=== PATIENT | female | born 1985 | race Caucasian/White ===

== ENCOUNTER 2024-04-23 11:01 | Day surgery (SDC) | payer OTHER, MEDICAID, SELFPAY ==
--- NOTE | 2024-04-16 14:22 | HP.PCM_ITS ---
History and Physical Date of Admission: 04/23/24 HPI: The patient is a 38 year old female presenting for pre-operative visit. She is scheduled for right ovarian cystectomy, possible oophorectomy and sterilization , for sterilization request and right ovarian cyst and RLQ pain on 04/23/24. Procedure discussed along with risks, benefits and complications. Other alternatives discussed for management. Consent form signed? Yes. PAST MEDICAL HISTORY PAST MEDICAL HISTORY Diagnosis Date ? Adnexal mass 01/08/2024 ? Anxiety and depression ? PTSD (post-traumatic stress disorder) PAST SURGICAL HISTORY PAST SURGICAL HISTORY Procedure Laterality Date ? INSERTION OF IUD 11/21/2023 Mirena ? PAST SURGICAL HISTORY OF Surgery when baby but doesnt know why just has a scar on left side of abdomen CURRENT MEDICATIONS Current Outpatient Medications Medication Sig Dispense Refill ? VYVANSE 30 mg capsule Take 1 capsule by mouth every afternoon. ? levonorgestrel (MIRENA) 21 mcg/24 hr (8 yrs) 52 mg IUD 1 Each by INTRAUTERINE route as directed. 1 Each 0 ? levonorgestrel (MIRENA) 21 mcg/24 hr (8 yrs) 52 mg IUD 1 Each by INTRAUTERINE route one time only for 1 dose. 1 Each 0 ? cholecalciferol, vitamin D3, (VITAMIN D3 ORAL) Take 1 capsule by mouth once daily. No current facility-administered medications for this visit. ALLERGIES: [place] and Venom-Honey Bee PERSONAL HISTORY: SOCIAL HISTORY Social History Tobacco Use ? Smoking status: Former Types: Cigarettes ? Smokeless tobacco: Never Vaping Use ? Vaping status: Never Used Substance Use Topics ? Alcohol use: Not Currently ? Drug use: Yes Frequency: 1.0 times per week Types: Marijuana Comment: Edible FAMILY HISTORY: FAMILY HISTORY FAMILY HISTORY Problem Relation Age of Onset ? Heart Mother ? No Known Problems Father ? other (overdose) Brother ? Breast Cancer Maternal Grandmother 50 ? No Known Problems Paternal Grandmother ? No Known Problems Paternal Grandfather ? Breast Cancer Maternal Aunt 50 ? Breast Cancer Maternal Aunt ? Heart Attack Maternal Aunt REVIEW OF SYMPTOMS: GENERAL: denies fevers or chills ENDOCRINOLOGY: has not been on steroids Cardiology : denies palpitations or chest pain Respiratory: denies SOB or cough Hematology: denies history of prolonged bleeding or easy bruising or VTE Allergy: Denies history of personal or family history of allergy to anesthesia PHYSICAL EXAMINATION: VITALS: Last menstrual period 01/15/2024. GENERAL: The patient is well nourished, well hydrated in no acute distress. , The patient is oriented to time, place, and person. NECK: Supple. No lynphadenopathy, normal thyroid, no thyromegaly. LUNGS: Clear to auscultation bilaterally. no wheezes, rhonchi or rales HEART: Regular rate and rhythm, Normal heart sounds, and No murmurs or gallops IMPRESSION: right ovarian cyst, sterilization request PLAN: The risks/benefits/alternatives and personal involved for the planned right ovarian cystectomy, possible oophorectomy and bilateral salpingectomy were reviewed with the patient. Her questions were answered to her satisfaction and she desires to proceed. Consent was signed. I reviewed with her postop instructions and expectations. I have reviewed and updated past medical and surgical history, medications and allergies Assessment & Plan Assessment/Plan (1) Sterilization: (2) Right ovarian cyst: (3) RLQ abdominal pain:
[2024-04-23] VITALS (10 sets, daily range): BP systolic 99–137; BP diastolic 49–79; PULSE 54–88; RESP 16–18; TEMP 36.2–36.8; O2SAT 96–99; BMI 42.3
[2024-04-23 11:35] LABS: Internal QC Validated? YES +Cl - CLEAR BKGD; Pregnancy, Urine Negative Negative
[2024-04-23 11:56] LABS: Hematocrit 42.1 % (37-47); Hemoglobin 13.8 g/dL (12.0-15.0); Mean Corp Hgb Conc 32.8 g/dL (32-36); Mean Corpuscular Hgb 28.4 pg (27.0-32.0); Mean Corpuscular Volume 86.6 fL (81-99); Platelet Count 328 K/mm3 (150-450); RBC Distribution Width CV 13.8 % (11.6-14.6); RBC Distribution Width SD 43.4 fl (35.1-43.9); Red Blood Count 4.86 M/mm3 (4.2-5.4); White Blood Count 7.8 K/mm3 (4.4-11.0)
[2024-04-23] MEDS: Acetaminophen 500 MG Tablet 1000 MG PO (11:56)
[2024-04-23] MEDS: Celecoxib 200 MG Capsule 400 MG PO (11:56)
[2024-04-23] MEDS: 0.9% Normal Saline (1000mL) 1,000 ML 15 ML IV (11:57)
--- NOTE | 2024-04-23 12:20 | PRE.ANES_ITS ---
ASA Classification* ASA Classification ASA Classification: 3 Assessment & Plan Anesthesia* Anesthesia Assessment Anesthesia Assessment: Discussed sedation and/or anesthesia options, risks, benefits, and alternatives with patient/parents/legal guardian/POA. Questions invited. The patient/parents/legal guardian/POA seems to understand and agrees to proceed with anesthesia plan. Reviewed the physical assessment, medical history, allergy history and patient home medications list prior to surgery/procedure/anesthetic and documented any changes. Performed airway and anesthesia risk assessments. Anesthesia Type Anesthesia Type: General History Source History Obtained from:: Patient and Chart Anesthesia Focused Assessment* Temperature: 97.1 F Pulse Rate: 81 Blood Pressure: 137/70 Respiratory Rate: 16 Pulse Ox: 97 Oxygen Delivery Method: Room Air Airway Assessment Mouth opens: >3 cm Mallampati Score: I Teeth Condition: Missing (Patient has a missing right upper molar.) Neck Range of motion (ROM): Full ROM Focused Labs Anesthesia Preop lab: CBC WBC 7.8 K/mm3 (4.4-11.0) 04/23/24 11:45 RBC 4.86 M/mm3 (4.2-5.4) 04/23/24 11:45 Hgb 13.8 g/dL (12.0-15.0) 04/23/24 11:45 Hct 42.1 % (37-47) 04/23/24 11:45 Plt Count 328 K/mm3 (150-450) 04/23/24 11:45 CHEMISTRY COAG Urine Test Negative Negative 04/23/24 11:21 Pre-Assessment Diagnosis/Proposed Procedure Planned Operative Procedure(s): (B) Laparoscopic, bilateral Salpingectomy, right ovarian cystectomy, possible oophorectomy Anesthesia History Anesthesia History - 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 When Was Last Pacemaker Check QUESTION #4 FULL TEXT: You/Your Family Experience fever (hyperthermia) with Anesthesia Last Oral Intake Last Oral intake: Last Oral Intake NPO since 09:45 04/23/24 11:36 Meds taken in AM with sips of Yes 04/23/24 11:36 water? Meds patient instructed to take am of surgery Any additional information?: Yes NPO since: 10:30 (Patient water at 10:30 AM.) Meds taken in AM with sips of water?: Yes PONV PONV - multifocal lens inspector: PONV - multifocal lens inspector Female Yes 04/15/24 10:30 HX of Motion Sickness No 04/15/24 10:30 HX of N/V After Surgery No 04/15/24 10:30 Non-Smoker Yes 04/15/24 10:30 Duration of Surgery greater No 04/15/24 10:30 than 60 minutes Number of Risk Factors 2 04/15/24 10:30 PONV Score Moderate Risk 04/15/24 10:30 Height & Weight Height & Weight: Anesthesia: Height & Weight Height 5 ft 4 in 04/23/24 11:36 Weight: 112 kg 04/23/24 11:36 Body Mass Index (BMI) 42.3 04/23/24 11:36 Respiratory Assessment Respiratory Assessment - multifocal lens inspector: Respiratory Tract Infection Hx - multifocal lens inspector Hx Respiratory Tract Infection No 04/15/24 10:30 Any additional information?: Yes Hx Respiratory Tract Infection: Yes (Patient has a slight cough.) STOP Sleep Apnea STOP Sleep Apnea - multifocal lens inspector: STOP Sleep Apnea - multifocal lens inspector Hx Hypertension No 04/15/24 10:30 Hx Sleep Apnea No 04/15/24 10:30 CPAP BIPAP Do you snore loudly (louder No 04/15/24 10:30 than talking or can be heard Do you often feel tired/ No 04/15/24 10:30 fatigued/ sleepy during daytime? Has anyone observed you stop No 04/15/24 10:30 breathing during sleep? STOP Results Negative 04/15/24 10:30 QUESTION #5 FULL TEXT : Do you snore loudly (louder than talking or can be heard through closed doors)? 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 Specify any problems Hx of Preganancy in last 3 N/A 04/15/24 10:30 Months Nurse Filling Out Transfusion NBUCHER 04/15/24 10:30 & Questions: Date: 04/15/24 04/15/24 10:30 Time: 10:32 04/15/24 10:30 Patient unable to answer at this time (ie. confused, unrespo /Reproduction History /Reproductive History - multifocal lens inspector: /Reproductive Hx- multifocal lens inspector Hx Now No 04/15/24 10:30 Gestational Age (in weeks): EDC: Hx Hx Para Hx Section SAB No 04/15/24 10:30 Active Medications Active Medications: Current Medications Generic Name Dose Route Start Last Admin Trade Name Freq PRN Reason Stop Dose Admin Acetaminophen 1,000 mg 04/23/24 12:30 04/23/24 11:56 Acetaminophen 500 Mg Tablet PO 04/23/24 12:31 1,000 mg PREOP ONE Administration Celecoxib 400 mg 04/23/24 12:30 04/23/24 11:56 Celecoxib 200 Mg Capsule PO 04/23/24 12:31 400 mg PREOP ONE Administration Sodium Chloride 1,000 mls @ 15 mls/hr 04/23/24 11:15 04/23/24 11:57 IV 04/29/24 00:34 15 mls/hr .Q48H BREEZY Administration Protocol PFSH Medical History Wears contact lenses Wears glasses Dietary restriction Former smoker Home Medications ?Medication ?Instructions ?Recorded ?Last Taken ?Type cholecalciferol (vitamin D3) 10 10 mcg PO DAILY 04/15/24 Unknown History mcg (400 unit) capsule (Vitamin D3) lisdexamfetamine 50 mg capsule 50 mg PO DAILY 04/15/24 04/23/24 09:45 History (Vyvanse) Allergy/AdvReac Type Severity Reaction Status Date / Time No Known Allergies Allergy Verified 04/23/24 11:31 Surgical History (Updated 04/23/24 @ 12:[address] Taj Leary MD) History of gastrointestinal surgery Social History Smoking Status: Former smoker Review of Systems (Anesthesia) ROS Narrative System reviewed and no additional complaints, except as documented.
--- NOTE | 2024-04-23 13:25 | CYST_PTH ---
PATIENT: JAQUELINE HANLEY LOC: [facility] U#:[id number] AGE/SX: 38/F ROOM: RE04/23/[address]: Dr. Katie Reyes MD : [id number] BED: DIS: 04/23/2024 SPEC #: [id number] RECD: 04/23/24 17:02 STATUS: MARIAMA BABATUNDE #: [id number] ASHA: 04/23/24 13:[address]: Katie Reyes DEPT: SURGICAL PATHOLOGY RECD BY: Suly Martin ENTERED: 04/26/24 07:33 SP TYPE: Cyst OTHR DR: Dr. Savannah Avila, DO Tissues: OVARIAN CYST Procedures: Surgery Specimen Level IV HEADER OPERATION: Laparoscopic bilateral salpingectomy, right ovarian cystectomy PRE-OP DIAGNOSIS: Sterilization, right ovarian cyst, right lower quadrant abdominal pain TISSUE SUBMITTED: Right ovarian cyst MICROSCOPIC DIAGNOSIS Right ovarian cyst and right fallopian tube: Benign epithelial cyst with focal hemosiderin deposition. Portion of fallopian tube with vascular congestion. PW. 04/27/2024 MICROSCOPIC DESCRIPTION Slides are reviewed. GROSS DESCRIPTION Received in fixative is one container labeled with the patient's name and designated Right ovarian cyst and right fallopian tube. The specimen consists of a previously opened cyst that is adjacent to fallopian tube. The fallopian tube measures 4.0cm in length and 1.0cm in width. Fimbrial end is identified. Sections reveal unremarkable cut surfaces. The cyst measures 6.5 x 4.0 x 0.5cm. No papillations are identified. Also present in the container is a detached piece of tissue most likely portion of the cyst measuring 2.0 x 0.5 x 0.2cm. Explosion Welder sections are submitted in four cassettes as follows: 1- fallopian tube, 2- portion of fallopian tube and adjacent cyst, 3&4- cyst. SJ.mr 04/26/2024 TC:5 CPT:15509
--- NOTE | 2024-04-23 13:32 | PCM.DC ---
Discharge Instructions Diet Discharge Diet: No restrictions DC O2, CPAP, BIPAP needs Home O2 Discharge instructions: No Dressing / Incision Discharge Activity: May [address] (04/24/24) Return to work on:: 04/26/24 May shower in (days): 1 May resume sexual activity in: 1 week Dressing / Incision Call your doctor if your incision/area has: Sudden Increased Bleeding and Foul Smelling Discharge Call your doctor if you observe: Fever of 101 or Higher Cleanse incision/area with: Soap & Water (Your incisions have skin glue and it can get wet. Leave on until it falls off) Follow Up Care Please Follow Up With: Katie Reyes MD When: You do not need a postop visit. Call [phone] or send a [employer] message as needed Test Results: Test results from this visit will be discussed in further detail at your follow-up appointment, if applicable. Discharge Plan Admission Attending Provider: Katie Reyes Primary Care Provider: Savannah Avila Instructions Print Language: Mauritian Discharge Orders/Prescriptions Prescriptions: No Action lisdexamfetamine [Vyvanse] 50 mg capsule 50 mg PO DAILY cholecalciferol (vitamin D3) [Vitamin D3] 10 mcg (400 unit) capsule 10 mcg PO DAILY Referrals / Follow Up: Savannah Avila DO [Primary Care Provider] - Disposition Disposition (needs filled in before D/C Order can be placed): Home, Self Care
[2024-04-23] MEDS: Bupivacaine 0.5% PF 10 ML VIAL (13:47)
--- NOTE | 2024-04-23 14:44 | PCM.OPRPT ---
Problems Associated Problem List Diagnoses (1) Sterilization: (2) Right ovarian cyst: (3) RLQ abdominal pain: Operative Report (Standard) Operative Information Date of Procedure: 04/23/24 Pre-Operative Diagnosis: sterilization request, right ovarian cyst, RLQ pain Post-Operative Diagnosis: Right ovarian cyst, RLQ pain Surgery/Procedure Performed: Right ovarian cystectomy senior ui ux developer: Yes Bookmobile Driver: Mathieu Palacios Tasks completed by assistant hairstylist: Closing, Insert Trochanter and Retracting Type of Anesthesia: General RN Documented Start/Stop Times: Operation Date: 04/23/24 13:25 Case Time Into Pre-Op 04/23/24 11:11 Procedure Start Time: 13:47 Procedure Stop Time: 14:49 Select all DRAINS/GRAFTS/IMPLANTS that apply: None Estimated Blood Loss: 10 Fluids Replaced: 800 Specimen collected: No Description of surgery: The patient was taken to the operating room where she was prepped and draped in the dorsolithotomy position. A weighted speculum was placed in the vagina and the anterior lip of the cervix was grasped with a tenaculum. The [employer] uterine manipulator was placed and the remainder of the instruments were removed from the vagina. Attention was turned to the abdomen. All port sites were infiltrated with 0.5% Marcaine before skin incisions were made. A 5 mm intraumbilical incision was made. The anterior abdominal wall was tented up with 2 towel clamps while a 5 mm blade less trocar and sleeve were directly inserted. Intraperitoneal placement was confirmed with the laparoscope. The pneumoperitoneum was created and the underlying abdominal contents were intact. The patient was placed in Trendelenburg. Right and left lower quadrant ports were placed under direct visualization lateral to the inferior epigastric vessels. The bowel was not able to be swept away. There was a large peritoneal cyst that appeared to be likely ovarian cyst adhered to the right pelvic sidewall. I grasped it and was able to with blunt and sharp dissection dissected off the pelvic sidewall for the most part down to where it was slightly adhered to the uterus and anterior abdominal wall. I dissected back towards the infundibulopelvic ligament but could not safely identify the infundibulopelvic ligament as it. There might be some adhesions of the bowel to the infundibulopelvic ligament. Eventually I was able to free up most of the cyst away from the pelvic sidewall enough that I could rupture the cyst and suction out the large amount of straw-colored fluid. I then used the LigaSure device to clamp seal and transect the cyst wall itself. I could then see some normal ovarian tissue under the cyst but this was still densely adhered to the pelvic sidewall into the bowel and I could not safely dissected away because of the location to the underlying pelvic sidewall structures. With extensive bowel adhesions it would be a very extensive surgery to free up the infundibulopelvic ligament to safely ligate the vessels. Also would take extensive lysis of adhesions with risk of bowel and bladder injury markedly elevated to 5 identify both tubes in the uterus adequately to do a tubal or remove the right ovary component. I was not even comfortable putting a Filshie clip on the left tube because it was edematous and scarred and because of the proximity of the bowel. If I placed a Filshie clip I could not guarantee that it would be around the entire tubal lumen. Decision was made not to proceed with tubal sterilization. The cyst wall was placed in an Endo Catch bag and brought out through the 5 mm umbilical port incision. The skin incisions were closed with Monocryl suture in a subcuticular fashion and skin glue. The vaginal instruments were removed and the vaginal sweep was completed by me. The IUD was left in place. The procedure was performed by me with assistance other than as dictated above. All sponge and needle counts were correct and the patient was taken to the recovery room in stable condition. Surgical Findings: Extensive adhesions of the uterus to anterior abdominal wall> Colon and small bowel adhered to each other and uterus. Ovaries adhered to side sheldon. Tubes adhered to ovary and bowel. Normal liver and upper abdomen. Uterus covered in adhesions Complications Complications: No Admit VTE Documentation VTE Present on Admission: No VTE Mechan Device Prophylaxis: SCD's VTE Pharm Prophylaxis ordered?: No
--- NOTE | 2024-04-23 15:15 | PCM.POST.ANE ---
Anesthesia: Postop Eval I Current Vital Signs Temperature: 97.5 F Pulse Rate: 88 Blood Pressure: 123/79 Respiratory Rate: 16 Pulse Ox: 99 Oxygen Delivery Method: Room Air Assessment Airway patent: Yes Spontaneous unlabored respirations: Yes Mental status: Awake and Calm nausea: No Vomiting: No Anesthesia Complication: No Fluid Hydration Crystalloid volume administer (ml): 900 Total IV fluid infused: 900 Progress Note Anesthesia document: Postop Eval 1 completed: Yes
--- NOTE | 2024-04-23 18:00 | SUR.PHASEII ---
patient just came to desk and states she forget she was not supposed to put anything in the vagina, she put a tampon in. Instructed her to immediately remove it, gave her a peripad to use instead. pt has been dressed and waiting for ride to pick her up.
--- NOTE | 2024-04-23 21:48 | POSTOPAN2_ITS ---
Anesthesia Postop Eval I Sum Postop Eval Completion status Anesthesia document: Postop Eval 1 completed: Yes Anesthesia Postop Eval I Summary Anesthesia Postop Eval I Summary: Anesthesia Postop Eval I: Assessment Summary Airway patent Yes 04/23/24 15:16 GERIATRIC SOCIAL WORK PROFESSOR.TNES Spontaneous unlabored Yes 04/23/24 15:16 GERIATRIC SOCIAL WORK PROFESSOR.TNES respirations Mental status Awake,Calm 04/23/24 15:16 GERIATRIC SOCIAL WORK PROFESSOR.TNES nausea No 04/23/24 15:16 GERIATRIC SOCIAL WORK PROFESSOR.TNES Vomiting No 04/23/24 15:16 GERIATRIC SOCIAL WORK PROFESSOR.TNES Anesthesia Postop Eval I: Fluid Summary Crystalloid volume administer 900 04/23/24 15:16 GERIATRIC SOCIAL WORK PROFESSOR.TNES (ml) Colloids volume administered ( ml) Blood Product volume administered (ml) Total IV fluid infused 900 04/23/24 15:16 GERIATRIC SOCIAL WORK PROFESSOR.TNES Anesthesia Postop Eval I: Summary Notes Anesthesia Complication No 04/23/24 15:16 GERIATRIC SOCIAL WORK PROFESSOR.TNES Anesthesia Complication Comment: Post-operative progress note Anesthesia: Postop Eval II Evaluation Mental status: Awake and Calm Pain Level: 1 nausea: No Vomiting: No Complications Anesthesia Complication: No
--- NOTE | 2024-04-23 21:48 | PCM.POSTANE2 ---
Anesthesia Postop Eval I Sum Postop Eval Completion status Anesthesia document: Postop Eval 1 completed: Yes Anesthesia Postop Eval I Summary Anesthesia Postop Eval I Summary: Anesthesia Postop Eval I: Assessment Summary Airway patent Yes 04/23/24 15:16 STUNT [email or web address].TNES Spontaneous unlabored Yes 04/23/24 15:16 STUNT PERSON.TNES respirations Mental status Awake,Calm 04/23/24 15:16 STUNT [email or web address].TNES nausea No 04/23/24 15:16 STUNT PERSON.TNES Vomiting No 04/23/24 15:16 STUNT [email or web address].TNES Anesthesia Postop Eval I: Fluid Summary Crystalloid volume administer 900 04/23/24 15:16 STUNT PERSON.TNES (ml) Colloids volume administered ( ml) Blood Product volume administered (ml) Total IV fluid infused 900 04/23/24 15:16 STUNT [email or web address].TNES Anesthesia Postop Eval I: Summary Notes Anesthesia Complication No 04/23/24 15:16 STUNT PERSON.TNES Anesthesia Complication Comment: Post-operative progress note Anesthesia: Postop Eval II Evaluation Mental status: Awake and Calm Pain Level: 1 nausea: No Vomiting: No Complications Anesthesia Complication: No
== END 2024-04-23 18:21 | disposition home or self-care (01) ==
LOC: SDC 11:06 → AC 11:07
PROVIDERS: Anesthesiology; PCP Internal Medicine; Referring Provider Obstetrics & Gynecology; Visit Provider Obstetrics & Gynecology
PROC: (CPT 58661; principal; 2024-04-23 13:10)
DX: N83.291 Other ovarian cyst, right side (principal); Z87.891 Personal history of nicotine dependence; Z30.2 Encounter for sterilization; N73.6 Female pelvic peritoneal adhesions (postinfective); Z97.5 Presence of (intrauterine) contraceptive device
CPT/HCPCS: 58662; 58661; 00840; 81025; 85027; 88305; A4216; J2405